=== PATIENT | male | born 1960 | race Caucasian/White ===

== ENCOUNTER 2017-04-12 15:02 | Emergency (ER) | payer OTHER, BC ==
[~2017-04-12] VITALS: Ht 177.8 cm; Wt 88.6 kg
[2017-04-12 15:02] VITALS: BP 154/92
[2017-04-12] MEDS ORDERED: IBUP-1114 PO (15:26)
--- NOTE | 2017-04-12 17:58 | REP ---
Left elbow series: Four views. History: Trauma. Findings: Four views of the left elbow demonstrate lateral epicondylar spurring. There is no evidence of fracture, subluxation or joint effusion. Impression: No fracture noted. Signed by Tony Bailey MD 04/12/2017 06:55 P
[2017-04-12] MEDS ORDERED: NAPR500T PO (19:44)
== END 2017-04-12 19:51 | disposition home or self-care (01) ==
LOC: M ED 15:02
DX: M77.12 Lateral epicondylitis, left elbow (principal)

== ENCOUNTER → 2018-11-03 | Outpatient (REF) | payer OTHER, BC ==
[~2018-11-03] MED LIST: IBUP-1114 PO; NAPR-837 PO
== END ==
LOC: M LAB REF 19:26
PROVIDERS: ATTEND Physician Assistant
DX: M54.5 Low back pain (principal)

== ENCOUNTER → 2019-07-03 | Outpatient (CLI) | payer BC ==
--- NOTE | 2019-07-03 15:17 | REP ---
Two-view chest: 07/03/2019. Indication: Cough. Comparison: None. Findings: There is no air space consolidation, pleural effusion or pneumothorax. Cardiomediastinal silhouette is unremarkable. Impression: No acute cardiopulmonary process. Electronically Signed by Moses Evans DO 07/03/2019 03:08 P
== END ==
LOC: M WUC 14:59
PROVIDERS: ATTEND Internal Medicine
DX: R05 Cough (principal)

== ENCOUNTER → 2019-07-03 | Outpatient (CLI) | payer BC | LOC: M LAB 15:22 | PROVIDERS: ATTEND Internal Medicine | DX: R05 Cough (principal) ==

== ENCOUNTER → 2019-08-09 | Outpatient (REF) | payer BC | LOC: M LAB REF 10:43 | PROVIDERS: ATTEND Internal Medicine | DX: Z11.1 Encounter for screening for respiratory tuberculosis (principal); R05 Cough ==

== ENCOUNTER → 2019-08-10 | Outpatient (REF) | payer BC | LOC: M LAB REF 10:24 | PROVIDERS: ATTEND Internal Medicine | DX: Z11.1 Encounter for screening for respiratory tuberculosis (principal); R05 Cough ==

== ENCOUNTER → 2019-08-11 | Outpatient (REF) | payer BC | LOC: M LAB REF 10:04 | PROVIDERS: ATTEND Internal Medicine | DX: Z11.1 Encounter for screening for respiratory tuberculosis (principal); R05 Cough ==

== ENCOUNTER → 2019-10-30 | Outpatient (REF) | payer BC ==
[2019-10-30 14:02] LABS: BASO % 0.4 % (0.0-1.0); EOS # 0.2 10^3/uL (0.0-0.5); EOS % 3.3 % (0.0-3.0); HEMATOCRIT 46.2 % (42.0-52.0); HEMOGLOBIN 15.6 g/dl (13.5-17.5); LYMPH # 0.8 10^3/uL (1.5-5.0); LYMPH % 14.5 % (24.0-44.0); MEAN CORPUSCULAR HEMOGLOBIN 30.5 pg (27.0-33.0); MEAN CORPUSCULAR HGB CONC 33.8 g/dl (32.0-36.5); MEAN CORPUSCULAR VOLUME 90.4 fl (80.0-96.0); MONO # 0.4 10^3/uL (0.0-0.8); MONO % 7.9 % (0.0-5.0); NEUTROPHILS % 73.5 % (36.0-66.0); PLATELET COUNT, AUTOMATED 202 10^3/uL (150-450); RED BLOOD COUNT 5.11 10^6/uL (4.30-6.10); WHITE BLOOD COUNT 5.4 10^3/uL (4.0-10.0)
[2019-10-30 14:08] LABS: ALBUMIN 3.8 GM/DL (3.2-5.2); ALT/SGPT 37 U/L (12-78); BILIRUBIN,TOTAL 0.5 MG/DL (0.2-1.0); BLOOD UREA NITROGEN 17 MG/DL (7-18); CALCIUM LEVEL 8.9 MG/DL (8.5-10.1); CARBON DIOXIDE LEVEL 28 MEQ/L (21-32); CHLORIDE LEVEL 102 MEQ/L (98-107); CREATININE FOR GFR 0.97 MG/DL (0.70-1.30); GLOMERULAR FILTRATION RATE > 60.0 (>56); GLUCOSE, FASTING 110 MG/DL (70-100); POTASSIUM SERUM 3.7 MEQ/L (3.5-5.1); SODIUM LEVEL 135 MEQ/L (136-145); TOTAL PROTEIN 7.7 GM/DL (6.4-8.2)
== END ==
LOC: M SFHCPLAZ 09:29
PROVIDERS: ATTEND Internal Medicine Infectious Disease
DX: L27.0 Generalized skin eruption due to drugs and medicaments taken internally (principal)

== ENCOUNTER → 2020-07-01 | Outpatient (REF) | payer BC | LOC: M LAB REF 15:03 | PROVIDERS: ATTEND Physician Assistant Medical | DX: H73.001 Acute myringitis, right ear (principal) ==

== ENCOUNTER → 2022-07-13 | Outpatient (CLI) | payer BC ==
[2022-07-13 17:14] LABS: HEMATOCRIT 44.2 % (42.0-52.0); HEMOGLOBIN 14.8 g/dl (13.5-17.5); MEAN CORPUSCULAR HEMOGLOBIN 31.3 pg (27.0-33.0); MEAN CORPUSCULAR HGB CONC 33.5 g/dl (32.0-36.5); MEAN CORPUSCULAR VOLUME 93.4 fl (80.0-96.0); PLATELET COUNT, AUTOMATED 258 10^3/uL (150-450); RED BLOOD COUNT 4.73 10^6/uL (4.30-6.10); WHITE BLOOD COUNT 7.1 10^3/uL (4.0-10.0)
[2022-07-13 17:33] LABS: ALKALINE PHOSPHATASE 90 U/L (46-116); ALT/SGPT 24 U/L (7.0-40); AST/SGOT 21 U/L (<34); BILIRUBIN,TOTAL 0.3 MG/DL (0.3-1.2); BLOOD UREA NITROGEN 17 MG/DL (9-23); CALCIUM LEVEL 9.3 MG/DL (8.5-10.1); CARBON DIOXIDE LEVEL 25 MMOL/L (20-31); CHLORIDE LEVEL 105 MMOL/L (98-107); CREATININE FOR GFR 0.76 MG/DL (0.70-1.30); GLOMERULAR FILTRATION RATE > 60.0 (>56); GLUCOSE, FASTING 106 MG/DL (60-100); SODIUM LEVEL 139 MMOL/L (136-145); TOTAL PROTEIN 6.9 G/DL (5.7-8.2)
[2022-07-13 17:48] LABS: HEPATITIS B SURFACE ANTIGEN NEGATIVE (NEGATIVE)
[2022-07-13 18:06] LABS: HEPATITIS B CORE ANTIBODY IGM NEGATIVE (NEGATIVE); HEPATITIS C VIRUS ABY INDEX 0.1 INDEX (<0.8)
[2022-07-13 18:07] LABS: HIV 1&2 SCREEN CENTAUR NEGATIVE (NEGATIVE)
== END ==
LOC: M LAB 16:23
PROVIDERS: ATTEND Nurse Practitioner Family
DX: L40.9 Psoriasis, unspecified (principal)

== ENCOUNTER → 2022-07-16 | Outpatient (CLI) | payer BC | LOC: M RAD 16:12 | PROVIDERS: ATTEND Nurse Practitioner Family | DX: R76.12 Nonspecific reaction to cell mediated immunity measurement of gamma interferon antigen response without active tuberculosis (principal); N20.0 Calculus of kidney ==

== ENCOUNTER → 2023-08-10 | Outpatient (CLI) | payer BC ==
[2023-08-10 07:38] LABS: BASO % 0.4 % (0.0-1.0); EOS # 0.1 10^3/uL (0.0-0.5); EOS % 2.5 % (0.0-3.0); HEMATOCRIT 43.9 % (42.0-52.0); HEMOGLOBIN 14.6 g/dl (13.5-17.5); LYMPH # 1.6 10^3/uL (1.5-5.0); LYMPH % 30.2 % (24.0-44.0); MEAN CORPUSCULAR HGB CONC 33.3 g/dl (32.0-36.5); MEAN CORPUSCULAR VOLUME 93.2 fl (80.0-96.0); MONO # 0.4 10^3/uL (0.0-0.8); MONO % 8.2 % (2.0-8.0); NEUTROPHILS # 3.1 10^3/uL (1.5-8.5); NEUTROPHILS % 58.3 % (36.0-66.0); PLATELET COUNT, AUTOMATED 267 10^3/uL (150-450); RED BLOOD COUNT 4.71 10^6/uL (4.30-6.10); WHITE BLOOD COUNT 5.2 10^3/uL (4.0-10.0)
[2023-08-10 07:55] LABS: HEMOGLOBIN A1c 5.3 % (4.0-6.0)
[2023-08-10 08:09] LABS: ALKALINE PHOSPHATASE 82 U/L (46-116); ALT/SGPT 38 U/L (7.0-40); AST/SGOT 24 U/L (<34); BILIRUBIN,TOTAL 0.6 MG/DL (0.3-1.2); BLOOD UREA NITROGEN 15 MG/DL (9-23); CALCIUM LEVEL 9.5 MG/DL (8.3-10.6); CARBON DIOXIDE LEVEL 29 MMOL/L (20-31); CHLORIDE LEVEL 105 MMOL/L (98-107); CHOLESTEROL LEVEL 218 MG/DL (<200); GLOMERULAR FILTRATION RATE > 60.0 (>49); GLUCOSE, FASTING 98 MG/DL (74-106); POTASSIUM SERUM 4.3 MMOL/L (3.5-5.1); PSA SCREENING 0.77 NG/ML (< 4.00); SODIUM LEVEL 140 MMOL/L (136-145); TOTAL PROTEIN 6.9 G/DL (5.7-8.2); TRIGLYCERIDES LEVEL 135 MG/DL (<150)
[2023-08-10 08:10] LABS: TOTAL 25(OH) VITAMIN D 40.2 NG/ML (20.0-100.0)
[2023-08-10 08:11] LABS: FREE T4 1.17 NG/DL (0.89-1.76); THYROID STIMULATING HORMONE 0.393 uIU/ML (0.55-4.78)
== END ==
LOC: M RAD 06:59
PROVIDERS: ATTEND Physician Assistant
DX: Z12.5 Encounter for screening for malignant neoplasm of prostate (principal); Z22.7 Latent tuberculosis; Z13.220 Encounter for screening for lipoid disorders; Z13.29 Encounter for screening for other suspected endocrine disorder
CPT/HCPCS: 36415; 71046; 80053; 80061; 82306; 83036; 84439; 84443; 85025; G0103

== ENCOUNTER 2025-03-01 09:08 | Day surgery (SDC) | payer OTHER ==
[~2025-03-01] VITALS: Ht 177.8 cm; Wt 93.4 kg
[~2025-03-01 09:08] MED LIST changes: +FAMO40TA3 PO; +OMEG10002 PO; +THERTAB52 PO
[2025-03-01 11:44] VITALS: BP 156/93; TEMP 97.9; O2SAT 95
== END 2025-03-01 11:53 | disposition home or self-care (01) ==
LOC: M OPP 09:08
PROVIDERS: ATTEND Surgery
DX: Z12.11 Encounter for screening for malignant neoplasm of colon (principal); D12.6 Benign neoplasm of colon, unspecified; K30 Functional dyspepsia; K29.80 Duodenitis without bleeding; K29.70 Gastritis, unspecified, without bleeding; K44.9 Diaphragmatic hernia without obstruction or gangrene; Z79.899 Other long term (current) drug therapy